=== PATIENT | male | born 1960 | race Caucasian/White ===

== ENCOUNTER → 2019-02-16 | Outpatient (CLI) | payer BC ==
--- NOTE | 2019-02-16 15:34 | ECHOS ---
STRESS ECHOCARDIOGRAM DATE OF SERVICE: 02/16/2019 AGE: 59 SEX: M HT: 72" WT: 194 PROTOCOL: Hipolito protocol STAGE: 4 DURATION OF EXERCISE: 10 minutes HEART RATE REST: 67 BLOOD PRESSURE REST: 114/71 MAXIMUM HEART RATE ACHIEVED: 148 MAXIMUM BLOOD PRESSURE: 161/69 85% MPHR: 139 100% MPHR: 163 METS: 11.7 INDICATIONS: Chest pain. CLINICAL INFORMATION: Chest pain. STRESS DATA: Heart rate 67. Blood pressure is 114/71 mmHg. Baseline EKG showed sinus mechanism. The patient exercised on treadmill according to Hipolito protocol for a total of 10 minutes and achieved 11.7 METs. Max heart rate was 148, which is about 90% of maximum predicted heart rate. Maximum blood pressure was 161/69 mm Hg. Clinically, the patient did not have any symptoms of chest pain or chest discomfort and the EKG did not show any significant ST or T-wave abnormalities concerning for ischemia. ECHOCARDIOGRAM IMAGES: On echocardiogram images from parasternal long axis view, parasternal short axis view, apical 4 chamber and apical 2 chamber were obtained as the baseline images, at peak heart rate as well as on recovery. The echocardiogram images showed good augmentation in the left ventricular systolic function without any evidence of wall motion abnormalities concerning for ischemia. CONCLUSION: 1. Excellent exercise tolerance. 2. Normal EKG in response to exercise. 3. Normal echocardiogram in response to exercise. MMODL / IJN: [id number] /
== END | disposition home or self-care (01) ==
LOC: RADNMMAIN 09:49
PROVIDERS: ATTEND Family Medicine
DX: R07.9 Chest pain, unspecified (principal)
CPT/HCPCS: 93351

== ENCOUNTER 2019-02-18 11:39 | Day surgery (SDC) | payer BC ==
[2019-02-16 11:54] VITALS: BMI 26.3
[~2019-02-18 11:39] MED LIST: LACTATED RINGERS 1,000 ML IV SCH; LIDOCAINE 1% 20 ML VIAL (10MG/ML) FOR IV START INTRADERMA PRN
--- NOTE | 2019-02-18 11:57 | P.GSHP ---
History of Present Illness H&P Date: 02/18/19 CHIEF COMPLAINT: Colon screen HISTORY OF PRESENT ILLNESS: The patient is a 59-year-old male who presents for colon screen. Lower endoscopy was offered for further evaluation and management. PAST MEDICAL HISTORY: Please see list. PAST SURGICAL HISTORY: Please see list. MEDICATIONS: Please see list. ALLERGIES: Please see list. SOCIAL HISTORY: No illicit drug use FAMILY HISTORY: No reports of Crohn disease or ulcerative colitis. REVIEW OF ORGAN SYSTEMS: CONSTITUTIONAL: No reports of fevers or chills. PHYSICAL EXAM: VITAL SIGNS: Stable GENERAL: Well-developed pleasant in no acute distress. HEENT: No scleral icterus. Extraocular movements grossly intact. Moist buccal mucosa. NECK: Supple without lymphadenopathy. CHEST: Unlabored respirations. Equal bilateral excursions. CARDIOVASCULAR: Regular rate and rhythm. Distal 2+ pulses. ABDOMEN: Soft, nontender, nondistended. MUSCULOSKELETAL: No clubbing, cyanosis, or edema. ASSESSMENT: 1. Colon screen. PLAN: 1. Recommend proceeding with a lower endoscopy Past Medical History Past Medical History: Hyperlipidemia, Hypertension, Osteoarthritis (OA) Additional Past Medical History / Comment(s): hx migraines, recent stress stest for occ."heart flutter", bulging disks in neck History of Any Multi-Drug Resistant Organisms: None Reported Past Surgical History: Appendectomy, Joint Replacement, Orthopedic Surgery, Tonsillectomy Additional Past Surgical History / Comment(s): yana knee replacements, yana knee revisions, yana hip replacement, rt shoudler rotator cuff, left shoulder arthroscopy, yana knee arthroscopy, nose surgery x 2 after injury, left knee surgery 2 weeks after knee replacement (had infection after-not sure what organism) 2011 at [facility] Past Anesthesia/Blood Transfusion Reactions: No Reported Reaction Smoking Status: Never smoker - Past Family History Mother Family Medical History: Cancer Medications and Allergies Home Medications Medication Instructions Recorded Confirmed Type Atorvastatin [Lipitor] 10 mg PO DAILY 02/16/19 02/16/19 History Ibuprofen [Motrin] 800 mg PO TID PRN 02/16/19 02/16/19 History Lisinopril [Prinivil] 10 mg PO DAILY 02/16/19 02/16/19 History Multivitamins, Thera [Multivitamin 1 tab PO DAILY 02/16/19 02/16/19 History (formulary)] Mv-Min/Vit C/Glut/Lysine/Hc124 1 each PO DAILY 02/16/19 02/16/19 History [Airborne Tablet Chewable] traZODone HCL 50 mg PO HS 02/16/19 02/16/19 History Allergies Allergy/AdvReac Type Severity Reaction Status Date / Time No Known Allergies Allergy Verified 02/16/19 11:39
[2019-02-18] MEDS ORDERED: LACTATED RINGERS 1,000 ML IV ONE (12:14)
[2019-02-18] MEDS ORDERED: LIDOCAINE 1% INJ 10MG/ML (20 ML MDV) ONE (13:44)
[2019-02-18] MEDS ORDERED: PROPOFOL 10 MG/ML 20 ML VIAL IV ONE (13:44)
[2019-02-18 13:48] VITALS: RESP 18; TEMP 97.8
[2019-02-18 14:34] VITALS: BP 107/65; PULSE 74
--- NOTE | 2019-02-18 14:40 | P.PCN ---
Date of Procedure: 02/18/19 Description of Procedure: PREOPERATIVE DIAGNOSIS: Personal history of colorectal polyps Colonoscopy screening. POSTOPERATIVE DIAGNOSIS: Personal history of colorectal polyps Colonoscopy screening. Diverticulosis, scattered. OPERATION: Colonoscopy to the ileocecal valve and appendiceal orifice. Colonoscopy with cold forceps biopsy, ileal cecal valve SURGEON: Kristine Harris MD. ANESTHESIA: MAC. INDICATIONS: The patient is a 59-year-old male who presents for colonoscopy screening. Last colonoscopy within 5 years with high-risk polyps identified. Benefits and risks were described and informed consent was obtained. DESCRIPTION OF PROCEDURE: The patient had undergone Suprep. He had been brought into the operating room and laid in the left lateral decubitus position. After adequate intravenous sedation, the rectum was examined with 2% lidocaine jelly. The prostatic fossa was unremarkable.No external hemorrhoids were encountered. The rectal tone was within normal limits. No lesions were palpated in the rectal vault. An Olympus colonoscope was advanced until the ileocecal valve and appendiceal orifice were clearly viewed. The prep was excellent with clear visualization of the mucosal folds. The scope was removed with visualization of each mucosal fold. Scattered diverticulosis was encountered. No colonic polyps were found. At the ileocecal valve, an acute ulceration was identified and biopsied with cold forceps. Retroflexion of the scope demonstrated grade 1 internal hemorrhoids without active bleeding or inflammation. The colon was desufflated. The patient had tolerated the procedure well. Withdrawal time was over 6 minutes. FINDINGS: Aronchick preparation quality scale 1 (1-5) Internal hemorrhoids, grade 1 No external prolapsed hemorrhoids. No arteriovenous malformations. No adenomatous polyps. Sigmoid diverticulosis. At the ileocecal valve, an acute ulceration was identified and biopsied with cold forceps. RECOMMENDATIONS: Lower endoscopy in 5 years, 2023 Plan - Discharge Summary New Discharge Prescriptions: No Action Multivitamins, Thera [Multivitamin (formulary)] 1 tab PO DAILY traZODone HCL 50 mg PO HS Atorvastatin [Lipitor] 10 mg PO DAILY Lisinopril [Prinivil] 10 mg PO DAILY Ibuprofen [Motrin] 800 mg PO TID PRN PRN Reason: pain Mv-Min/Vit C/Glut/Lysine/Hc124 [Airborne Tablet Chewable] 1 each PO DAILY Discharge Medication List Atorvastatin [Lipitor] 10 mg PO DAILY 02/16/19 [History] Ibuprofen [Motrin] 800 mg PO TID PRN 02/16/19 [History] Lisinopril [Prinivil] 10 mg PO DAILY 02/16/19 [History] Multivitamins, Thera [Multivitamin (formulary)] 1 tab PO DAILY 02/16/19 [History] Mv-Min/Vit C/Glut/Lysine/Hc124 [Airborne Tablet Chewable] 1 each PO DAILY 02/16/19 [History] traZODone HCL 50 mg PO HS 02/16/19 [History] Follow up Appointment(s)/Referral(s): Kristine Harris MD [STAFF PHYSICIAN] - As Needed Patient Instructions/Handouts: *Surgery [facility] - (Anesthesia) Endoscopy Discharge Instructions, Diverticulosis (DC), Diverticulosis Diet (GEN), Colonoscopy (DC), Diverticulosis (ED) Activity/Diet/Wound Care/Special Instructions: Repeat colonoscopy in 5 years, 2023 Discharge Disposition: HOME SELF-CARE
== END 2019-02-18 15:06 | disposition home or self-care (01) ==
LOC: ORWHC2ENDO 11:39
PROVIDERS: ATTEND Surgery Plastic and Reconstructive Surgery
DX: Z12.11 Encounter for screening for malignant neoplasm of colon (principal); K52.9 Noninfective gastroenteritis and colitis, unspecified; K63.3 Ulcer of intestine; K57.30 Diverticulosis of large intestine without perforation or abscess without bleeding; K64.0 First degree hemorrhoids; Z86.010 Personal history of colon polyps; I10 Essential (primary) hypertension; E78.5 Hyperlipidemia, unspecified; M19.90 Unspecified osteoarthritis, unspecified site; G43.909 Migraine, unspecified, not intractable, without status migrainosus; Z79.899 Other long term (current) drug therapy; Z90.49 Acquired absence of other specified parts of digestive tract; Z96.653 Presence of artificial knee joint, bilateral; Z96.643 Presence of artificial hip joint, bilateral; Z80.9 Family history of malignant neoplasm, unspecified
CPT/HCPCS: 88305; 45380; J2001; J2704

== ENCOUNTER → 2019-03-16 | Outpatient (CLI) | payer BC ==
[2019-03-16 11:51] VITALS: BP 125/75; PULSE 76; RESP 18
--- NOTE | 2019-03-17 05:38 | P.PAINCN ---
History of Present Illness - Reason for Consult Consult date: 03/16/19 - History of Present Illness This is an initial consultation visit for this 59 years old male with a chronic history of severe neck pain, patient reported that the pain started 4 years ago , he denies any initiating event, but he reported that the intensity of the pain came more prominent and more intense after he fell on his left shoulder in January 2018, he reported that the pain in the neck and radiated to the right upper extremity associated with numbness and tingling sensation in the fingers of his right hand, and he also reported that the pain is occasionally added to his left upper extremity, patient denies any motor or sensory deficit, he denies any fever or night sweats and that is no change in the bowel movements or urination, he tried TENS unit without any benefit Past Medical History Past Medical History: Hyperlipidemia, Hypertension, Osteoarthritis (OA) Additional Past Medical History / Comment(s): hx migraines, "heart flutter",bul ging disks in neck History of Any Multi-Drug Resistant Organisms: None Reported Past Surgical History: Appendectomy, Joint Replacement, Orthopedic Surgery, Tonsillectomy Additional Past Surgical History / Comment(s): yana knee replacements,yana knee revisions,had left knee surgery 2 weeks after knee replacemt for infection 2012 @ [facility],yana hip replacements, rt shoulder rotator cuff,left shoulder arthroscopy,yana knee arthroscopy, nasl surgery x2 after an injury Past Anesthesia/Blood Transfusion Reactions: No Reported Reaction Past Psychological History: No Psychological Hx Reported Smoking Status: Never smoker Past Alcohol Use History: Occasional Past Drug Use History: None Reported - Past Family History Mother Family Medical History: Cancer Medications and Allergies Home Medications Medication Instructions Recorded Confirmed Type Atorvastatin [Lipitor] 10 mg PO DAILY 02/16/19 03/16/19 History Ibuprofen [Motrin] 800 mg PO TID PRN 02/16/19 03/16/19 History Lisinopril [Prinivil] 10 mg PO DAILY 02/16/19 03/16/19 History Multivitamins, Thera [Multivitamin 1 tab PO DAILY 02/16/19 03/16/19 History (formulary)] Mv-Min/Vit C/Glut/Lysine/Hc124 1 each PO DAILY 02/16/19 03/16/19 History [Airborne Tablet Chewable] traZODone HCL 50 mg PO HS 02/16/19 03/16/19 History Sulfamethox-Tmp 800-160Mg [Bactrim 1 tab PO Q12HR 03/16/19 03/16/19 History DS 800-160 mg] Allergies Allergy/AdvReac Type Severity Reaction Status Date / Time sulfamethoxazole Allergy Rash/Hives Verified 03/16/19 12:19 [From Bactrim] trimethoprim [From Bactrim] Allergy Rash/Hives Verified 03/16/19 12:19 Physical Exam Vitals: Vital Signs Pulse Resp BP Pulse Ox 03/16/19 11:25 76 18 125/75 96 REVIEW OF ORGAN SYSTEMS: CONSTITUTIONAL: No fevers or chills. No recent weight loss. EYES: denies troubles with vision. HEENT: No difficulties with hearing. No nosebleeds. No difficulty swallowing. RESPIRATORY: Denies any troubles with breathing or dyspnea on exertion. CARDIOVASCULAR: Denies any chest pain, palpitations, or recent heart attacks. GASTROINTESTINAL: Denies fatty food intolerance. Has change in bowel habits and gas bloat. GENITOURINARY: Denies any blood in urine. Has increased urinary frequency. NEUROLOGICAL: + numbness and tingling along the distal upper extremities. No seizure disorders or headaches. MUSCULOSKELETAL: Has neck pain. SKIN:no skin cancer. No rash. PSYCHIATRIC: Denies current depression or suicidal thoughts. ENDOCRINE: Denies current thyroid disorders. Denies any blood sugar glucose intolerance. HEME/LYMPHATIC: Denies any lumps and bumps around the neck. History of deep venous thrombosis. ALLERGY/IMMUNOLOGY: No immunoglobulin therapy. No immune deficiencies. BREAST: Denies current breast lumps, pain or nipple discharge. Physical Examinations : Constitutiona : Cooperative , not in acute distress . HEENT : nech : supple , no Lymphadenopathy , normal thyroid size . : eyes no ptosis , no icterus, no photophobia . : ENT normal of hearing , normal oropharynx , no Thrush . Respiratory : Chest clear to auscultations Bilaterally , no wheezing , no Rhonchi . Cardiovascula : regular rate and rhythem , S1 , S2 , no S3 , no S4. Gastrointestina : abdomen soft no tenderness , bowel sounds , no organomegally . Genitourinary : Defferred . neurologic : Cranial nerve II to XII intact , no focal neurological deffecit . psychatric : alert , oriented X 3 , appropriate affect , intact judgment and insight . Lymphatic : no Lymphadenopathy . musculoskeltal : Cervical Spine motor stregnth in the deltoid and biceps, normal right side , normal Left side motor stregnth biceps and the wrist extensors normal right side ,normal left side . motor stregnth in the triceps muscle . normal Right side , normal Left side deep tendon reflexes= normal at the biceps , normal at Brachioradialis , normal at triceps. cervical facet loading test: Positive Bilaterally Spurling test= positive bilaterally. Neck distraction test= positive bilaterally. Jonnie sign= positive bilaterally. Limited ability to extend or rotate, and abduct left shoulder Lumber spine moter stegnth lower extremities ,thigh and legs 5/5 Right side , 5/5 Left side Results Comments: MRI of the cervical spine C4 5 disc desiccation and disc bulging is C6 7 disc desiccation Assessment and Plan Plan: Assessment and plan=1-cervical radiculopathy 2-cervical degenerative disc disease. 3-cervical spondylosis. 4-left shoulder arthropathy. Patient will be good candidate to have cervical epidural steroid injections under fluoroscopy guidance the C7-T1 Procedure risk and benefits and alternatives were discussed with the patient ,he agreed to the procedure Time with Patient: Greater than 30 PQRS Measure Charge Sheet Measure #130: Documentation of Current Meds in Medical Chart: Patient's medications documented in chart Measure #226: Tobacco Use: Screen & Cessation Intervention: Pt not a tobacco user Measure #111: Pneumonia Vaccination: Pneumococcal vaccine NOT administered or previously given Measure #47: Advance Care Plan: Advance care planning discussed & documented, pt chose/unable to give Measure #412: Opioid Treatment Agreement: No documentation of signed opioid treatment agreement Measure #408: Opioid Therapy Follow-up Evaluation: Patient had NO f/u eval minimum every 3 months during opioid therapy Measure #317: Preventitive Care & Scrn High Bld Press & F/U: Normal blood pressure, f/u not required Measure #128: Body Mass Index (BMI) Screening & Follow-up: BMI documented ABOVE normal parameters - f/u documented Measure #131: Pain Assessment & Follow-up: Pain positive & plan documented, Follow-up scheduled Measure #431: Unhealthy Alcohol Use Preventative Care & Scrn: Patient not identified as an unhealthy alcohol user PQRS Narrative: Smoking Status Never smoker Blood Pressure 125/75 Pain Intensity [Neck] 5 Scale Used Numeric (1 - 10) Hx Alcohol Use (MH) Yes Home Medications: Ambulatory Orders Atorvastatin [Lipitor] 10 mg PO DAILY 02/16/19 Ibuprofen [Motrin] 800 mg PO TID PRN 02/16/19 Lisinopril [Prinivil] 10 mg PO DAILY 02/16/19 Multivitamins, Thera [Multivitamin (formulary)] 1 tab PO DAILY 02/16/19 Mv-Min/Vit C/Glut/Lysine/Hc124 [Airborne Tablet Chewable] 1 each PO DAILY 02/16/19 traZODone HCL 50 mg PO HS 02/16/19 Sulfamethox-Tmp 800-160Mg [Bactrim DS 800-160 mg] 1 tab PO Q12HR 03/16/19
== END ==
LOC: PNWHC3 11:21
PROVIDERS: ATTEND Specialist
DX: M50.10 Cervical disc disorder with radiculopathy, unspecified cervical region (principal); M47.22 Other spondylosis with radiculopathy, cervical region; M46.92 Unspecified inflammatory spondylopathy, cervical region; E78.5 Hyperlipidemia, unspecified; I10 Essential (primary) hypertension; Z79.899 Other long term (current) drug therapy; Z79.1 Long term (current) use of non-steroidal anti-inflammatories (NSAID); Z79.2 Long term (current) use of antibiotics; Z88.2 Allergy status to sulfonamides
CPT/HCPCS: 99211

== ENCOUNTER → 2019-04-12 | Day surgery (SDC) | payer BC ==
[2019-03-23 13:04] VITALS: BMI 26.0
[~2019-04-12] MED LIST changes: +DEXAMETHASONE SOD PHOSPHATE 10 MG/ML 1 ML VIAL ONE; +IOPAMIDOL M200 10 ML VIAL ONE; +IV FLUID CONTINUATION 1,000 ML IV ONE; +LIDOCAINE 1% 20 ML VIAL (10MG/ML) FOR IV START INTRADERMA ONE; -LIDOCAINE 1% 20 ML VIAL (10MG/ML) FOR IV START INTRADERMA PRN; +MIDAZOLAM 2 MG/2 ML VIAL ONE; +fentaNYL (PF) 50 MCG/ML 2 ML AMP ONE
[2019-04-12 06:52] VITALS: TEMP 98.1
--- NOTE | 2019-04-12 07:58 | P.PCN ---
Date of Procedure: 04/12/19 Procedure(s) Performed: . PROCEDURE 1. Cervical epidural steroid injection under fluoroscopic guidance, C7-T1 (fluoroscopy images available in the radiology department ) 2. Cervical epidurogram. PREOPERATIVE DIAGNOSIS: 1- Cervical Degenerative Disc Diseases 2- Cervical radiculopathy., 3-cervical spondylosis with cervical Facet arthropathy without myelopathy POSTOPERATIVE DIAGNOSIS: : 1- Cervical Degenerative Disc Diseases , 2- Cervical radiculopathy. 3-,cervical spondylosis with cervical Facet arthropathy without myelopathy ANESTHESIA: Local anesthesia with lidocaine 1 % , and moderate sedation, with Versed 2 mg and Fentanyl 50 mcg. EBL 0 PROCEDURE INDICATION: The patient with neck pain and radiculitis unresponsive to conservative treatment consents for procedure. PROCEDURE DESCRIPTION / TECHNIQUE: The patient was seen and identified in the preoperative area. Risks, benefits, complications, including but not limited to infections ,bleeding , allergic reactions to the medications ,and not complete pain releife, and alternatives were discussed with the patient, the patient agreed to proceed with the procedure and signed the consent. Patient was taken to the OR and time out was completed. The patient was placed in the prone position on the procedure table. A pillow was placed under the patients chest to increase the cervical interlaminar space. The cervical area was prepped and draped in the usual sterile fashion. Vital signs were closely monitored during the procedure. Conscious sedation was used during the procedure to decrease patients anxiety. Using anterior-posterior fluoroscopy, the C7-T1 interlaminar space was identified and the skin over this site was marked and then infiltrated with 1% lidocaine subcutaneously. Subsequently, a 20-gauge 3-1/2-inch Tuohy epidural needle was inserted and advanced toward the epidural space by means of the ``richey ging-drop technique and guided by AP and lateral fluoroscopy. The correct needle position in the epidural space was verified with the injection of 2 mL of the water soluble contrast dye Isovue-200 and observing an excellent epidurogram with the epidural spread of the dye, after negative aspiration for blood and CSF and in the absence of paresthesias. Again after negative aspiration, mixture containing 20 mg Dexamethasone and 2 ml of preservative- free normal saline injected and a washout of epidurogram was seen. Needle was withdrawn intact, skin was cleansed, and bandages were applied. Complications= none. Disposition= patient was placed in supine position and transferred to the recovery room area in stable condition and there was no evidence of upper or lower extremity motor or sensory deficit after the procedure patient was discharged from recovery room after discharge criteria met and home discharge instructions was given by the staff and patient will follow with the pain clinic in 2-4 weeks
[2019-04-12 08:04] VITALS: RESP 16
[2019-04-12 08:16] VITALS: BP 113/75; PULSE 80
--- NOTE | 2019-04-12 08:20 | FL ---
EXAMINATION TYPE: FL guided pain mgmt statistic DATE OF EXAM: 04/12/2019 HISTORY: Fluoroscopy time 6 seconds of fluoroscopy provided. IMPRESSION: 1. Fluoroscopy time.
== END ==
LOC: ORPAIN 06:27
PROVIDERS: ATTEND Specialist
DX: M50.30 Other cervical disc degeneration, unspecified cervical region (principal); M47.812 Spondylosis without myelopathy or radiculopathy, cervical region; Z88.2 Allergy status to sulfonamides
CPT/HCPCS: 62321; J2250; J1100; J3010; Q9966; 99152

== ENCOUNTER 2019-05-03 07:26 | Day surgery (SDC) | payer BC ==
[2019-04-23 11:07] VITALS: BMI 27.1
[~2019-05-03 07:26] MED LIST changes: -DEXAMETHASONE SOD PHOSPHATE 10 MG/ML 1 ML VIAL ONE; -IOPAMIDOL M200 10 ML VIAL ONE; -IV FLUID CONTINUATION 1,000 ML IV ONE; +LIDOCAINE 1% (10MG/ML) FOR IV START INTRADERMA PRN; -LIDOCAINE 1% 20 ML VIAL (10MG/ML) FOR IV START INTRADERMA ONE; -MIDAZOLAM 2 MG/2 ML VIAL ONE; -fentaNYL (PF) 50 MCG/ML 2 ML AMP ONE
[2019-05-03 07:34] VITALS: TEMP 97
[2019-05-03] MEDS ORDERED: DEXAMETHASONE SOD PHOSPHATE 10 MG/ML 1 ML VIAL ONE (08:00)
[2019-05-03] MEDS ORDERED: IOPAMIDOL M200 10 ML VIAL ONE (08:00)
[2019-05-03] MEDS ORDERED: fentaNYL (PF) 50 MCG/ML 2 ML AMP ONE (08:00)
[2019-05-03] MEDS ORDERED: MIDAZOLAM 2 MG/2 ML VIAL ONE (08:00)
[2019-05-03] MEDS ORDERED: IV FLUID CONTINUATION 1,000 ML IV ONE (08:20)
--- NOTE | 2019-05-03 08:30 | FL ---
EXAMINATION TYPE: FL guided pain mgmt statistic DATE OF EXAM: 05/03/2019 HISTORY: Fluoroscopy time 8 seconds of fluoroscopy provided. IMPRESSION: 1. Fluoroscopy time.
[2019-05-03 08:41] VITALS: BP 135/88; PULSE 63; RESP 16
--- NOTE | 2019-05-03 09:37 | P.PCN ---
Date of Procedure: 05/03/19 Procedure(s) Performed: Diagnosis: Cervical radiculopathy Cervical degenerative disc disease POSTOPERATIVE DIAGNOSIS: Diagnoses: Cervical radiculopathy Cervical degenerative disc disease PROCEDURE Cervical Epidural steroid injection under fluoroscopic guidance at the C7-T1 interspace using left paramedian approach Cervical epidurogram ANESTHESIA: Local with 1% lidocaine 3 ml and IV sedation with Versed and fentanyl, sedation time 11 minutes Fluoroscopy was used for the procedure and images were saved in the radiology portion of the chart. EBL: Minimal PROCEDURE INDICATION: The patient presents with cervical radicular symptoms unresponsive to conservative treatment. This is the second cervical epidural steroid injection. PROCEDURE DESCRIPTION / TECHNIQUE: The patient was seen and identified in the preoperative area. Risks, benefits, complications including but not limited to infections ,bleeding ,allergic reaction to the medications ,nerve damage and incomplete pain relief, and alternatives were discussed with the patient. The patient agreed to proceed with the procedure and signed the consent. IV was started, and vital signs were stable. Patient was taken to the OR and time out was completed. The patient was placed in the prone position on procedure table and a pillow was placed under the chest area. The cervical area was prepped and draped in the usual sterile fashion. Conscious sedation was used during the procedure to decrease patients anxiety. Vital signs was monitored during the entire procedure. Using anterior-posterior fluoroscopy, the C7-T1 interlaminar space was identified and the skin over this site was marked and then infiltrated with 1% lidocaine subcutaneously. Subsequently, an 18-gauge Tuohy epidural needle was inserted and advanced toward the epidural space using the loss of resistance technique and guided by AP and 50 oblique fluoroscopy. The correct needle position in the epidural space was verified. After negative aspiration for blood and CSF and in the absence of paresthesias, Isovue 200 2 mL's was injected under live fluoroscopy with good epidural spread. After negative aspiration, a 5 ml mixture containing 10 mg of dexamethasone, 3 mL of preservative free normal saline and 1 mL of 1% lidocaine was injected. Needle was withdrawn intact, skin was cleansed, and bandages were applied. COMPLICATIONS: None DISPOSITION / PLANS: The patient was placed in a supine position and transferred to the recovery area in a stable condition for observation. There was no evidence of lower extremity motor or sensory deficit after the procedure. Patient was discharged from the recovery room after meeting discharge criteria. Home discharge instructions were given to the patient by the staff. The patient will be scheduled a follow-up in the clinic in 2-4 weeks.
== END 2019-05-03 08:51 | disposition home or self-care (01) ==
LOC: ORPAIN 07:26
PROVIDERS: ATTEND Anesthesiology
DX: M50.10 Cervical disc disorder with radiculopathy, unspecified cervical region (principal); Z88.2 Allergy status to sulfonamides
CPT/HCPCS: 62321; J2250; J1100; J3010; Q9966; 99152

== ENCOUNTER → 2020-02-09 | Outpatient (CLI) | payer BC ==
--- NOTE | 2020-02-09 13:57 | XR ---
EXAMINATION TYPE: XR elbow complete LT DATE OF EXAM: 02/09/2020 COMPARISON: NONE HISTORY: Pain FINDINGS: Three views of the elbow demonstrate no pathologic joint effusion. The osseous structures are intact . There is no acute fracture or dislocation. Large olecranon spur. Small spur along the lateral epi condyle. IMPRESSION: 1. No acute fracture or dislocation. If symptoms persist follow-up study in 7 to 10 days could be ob tained. 2. Large olecranon spur. There may be a hairline fracture through the spur. Correlate with point tend ernchristo.
== END | disposition home or self-care (01) ==
LOC: RADXRMAIN 13:34
PROVIDERS: ATTEND Nurse Practitioner
DX: M25.721 Osteophyte, right elbow (principal)

== ENCOUNTER → 2021-01-16 | Outpatient (CLI) | payer BC | END | disposition home or self-care (01) | LOC: LABWHC1 13:42 | PROVIDERS: ATTEND Family Medicine | DX: Z20.822 Contact with and (suspected) exposure to COVID-19 (principal); J06.9 Acute upper respiratory infection, unspecified | CPT/HCPCS: 87502; U0003; C9803 ==

== ENCOUNTER → 2021-04-11 | Outpatient (CLI) | payer BC ==
--- NOTE | 2021-04-11 15:29 | XR ---
Bilateral shoulders HISTORY: M25.511 M25.512 3 views of the right shoulder, 4 views of the left shoulder submitted Right shoulder shows prior rotator cuff tendon repair change. Osteoarthritic change is present with s purring at the glenohumeral joint. Suture anchors are present within the humeral head. Distal clavicl e has been resected. Acromion is downturned. Right lung apex as visualized is normal. There is no fra cture or dislocation. Left shoulder shows some hypertrophic change at the acromioclavicular joint. Distal acromial spur may be present, acromion is slightly downsloping. No fracture or dislocation. Left lung apex as visualiz ed is normal. Some remodeling present at the bony glenoid. impression: Suspect osteoarthritic changes, postop changes are noted on the right.
== END | disposition home or self-care (01) ==
LOC: RADXRMAIN 14:32
PROVIDERS: ATTEND Nurse Practitioner Family
DX: M25.511 Pain in right shoulder (principal); M25.512 Pain in left shoulder

== ENCOUNTER → 2021-04-30 | Outpatient (CLI) | payer BC ==
--- NOTE | 2021-04-30 11:31 | MR ---
EXAMINATION TYPE: MR shoulder LT wo con DATE OF EXAM: 04/30/2021 8:22 AM COMPARISON: NONE HISTORY: Pain in left shoulder TECHNIQUE: Multiplanar multispin echo imaging of the left shoulder was performed. FINDINGS: Rotator cuff : There is partial intrasubstance tear extending to the bursal surface involving the inf raspinatus tendon as well as the supraspinatus tendon. No evidence for full-thickness tear at this ti me. Bursa: No bursal effusion or thickening is seen. Musculature: There is edema within the infraspinatus musculature with partial tear noted. Acromioclavicular joint : There are moderate degenerative changes of the acromioclavicular joint. Th ere is no anterior or lateral acromial downsloping. Osseous structures : There are no fractures or regions of abnormal bone marrow signal intensity. Long biceps tendon : The biceps tendon is normally situated within the bicipital groove. No complete or partial biceps tendon tear is present. Glenohumeral Joint fluid : Small amount of fluid within the subacromial subdeltoid bursa. Cartilage and Bone : No focal hyaline cartilage defects are noted. No Hill-Sachs, reverse Hill-Sachs, or bony Bankart lesions are seen. Labrum : There are no SLAP or soft tissue Bankart lesions. No paralabral cysts are seen. OTHER FINDINGS : none IMPRESSION: 1. Partial intrasubstance tear infraspinatus tendon along the bursal surface. No evidence for full-th ickness tear. Small amount of fluid within the subacromial subdeltoid bursa.
== END | disposition home or self-care (01) ==
LOC: RADMRIMAIN 07:31
PROVIDERS: ATTEND Orthopaedic Surgery
DX: M75.112 Incomplete rotator cuff tear or rupture of left shoulder, not specified as traumatic (principal)

== ENCOUNTER → 2021-05-09 | Outpatient (CLI) | payer BC ==
[2021-05-10 01:16] LABS: Chol/HDL Ratio 2.64 Ratio; LDL Cholesterol,Calculated 94.9 mg/dL (0.0-131.0); VLDL Calculation 11.32 mg/dL (5.00-40.00)
[2021-05-10 01:24] LABS: ALT 25 U/L (10-49); AST 23 U/L (14-35); African American GFR (CKD) 127.6 (60.0-200.0); Albumin 4.4 g/dL (3.8-4.9); Albumin/Globulin Ratio 1.63 (1.60-3.17); Alkaline Phosphatase 84 U/L (41-126); BUN/Creat Ratio 19.17 Ratio (12.00-20.00); Blood Urea Nitrogen 11.5 mg/dL (9.0-27.0); Calcium 9.5 mg/dL (8.7-10.3); Carbon Dioxide 23.3 mmol/L (20.0-27.5); Chloride 100 mmol/L (96-109); Globulin 2.7 g/dL (1.6-3.3); Glucose 81 mg/dL (70-110); Non-African American GFR(CKD) 110.1 (60.0-200.0); Potassium 4.2 mmol/L (3.5-5.5); Sodium 135 mmol/L (135-145); Total Protein 7.1 g/dL (6.2-8.2)
[2021-05-10 01:27] LABS: Basophils # (A) 0.05 X 10*3/uL (0.00-0.10); Basophils % (A) 0.8 %; Eosinophils # (A) 0.08 X 10*3/uL (0.04-0.35); Eosinophils % (A) 1.2 %; HCT 47.9 % (39.6-50.0); HGB 14.8 g/dL (13.0-17.0); Immature Grans, Automated 0.5 %; Lymphocytes # (A) 1.01 X 10*3/uL (0.90-5.00); Lymphocytes % (A) 15.3 %; MCH 28.3 pg (27.0-32.0); MCHC 30.9 g/dL (32.0-37.0); MCV 91.6 fL (80.0-97.0); Mean Platelet Volume 12.8 fL (9.5-12.2); Monocytes # (A) 0.59 X 10*3/uL (0.20-1.00); NRBC Per 100 WBC 0 /100 WBCS (0.0-0.0); Neutrophils # (A) 4.83 X 10*3/uL (1.80-7.70); Neutrophils % (A) 73.2 %; Platelet Count 221 X 10*3/uL (140-440); RBC 5.23 X 10*6/uL (4.40-5.60); RDW 14.2 % (11.5-14.5); WBC 6.59 X 10*3/uL (4.50-10.00)
== END | disposition home or self-care (01) ==
LOC: LABWHC1 11:20
PROVIDERS: ATTEND Family Medicine
DX: Z00.00 Encounter for general adult medical examination without abnormal findings (principal); I10 Essential (primary) hypertension; Z12.5 Encounter for screening for malignant neoplasm of prostate
CPT/HCPCS: 36415; 80053; 80061; 84153; 84439; 84443; 85025; 93005

== ENCOUNTER → 2021-05-25 | Day surgery (SDC) | payer BC ==
[2021-05-22 13:06] VITALS: BMI 26.3
--- NOTE | 2021-05-24 10:39 | HP ---
HISTORY AND PHYSICAL CHIEF COMPLAINT: Left shoulder pain. HISTORY OF PRESENT ILLNESS: The patient is a 61-year-old [id number] male on permanent disability who presents with progressive left shoulder pain for the past several years, worsening recently. He is having pain with overhead use and at night. He has tried therapy in addition to injections and medications, with only partial temporary relief. He has a history of two previous left shoulder surgeries. PAST MEDICAL HISTORY: Significant for arthritis, hypercholesterolemia and hypertension. PAST SURGICAL HISTORY: Significant for bilateral total hip arthroplasty, bilateral total knee arthroplasty with subsequent revisions along with bilateral shoulder surgery. CURRENT MEDICATIONS: Atorvastatin and lisinopril. ALLERGIES: HE DENIES DRUG ALLERGIES. FAMILY HISTORY: Significant for cancer. SOCIAL HISTORY: Significant for social alcohol use. REVIEW OF SYSTEMS: Sixteen-point review of systems otherwise reviewed and is noncontributory. PHYSICAL EXAMINATION: On examination, the patient is approximately 6 feet tall, 195 pounds of mesomorphic habitus. HEENT exam is nonfocal. Neck is supple. On the left shoulder, he is tender about the anterior subacromial space. He has moderate crepitus. Active range of motion: Forward elevation 90 degrees, external rotation with arm at side 50 degrees, internal rotation to L5. Passively I am able to forward-elevate him 130 degrees. Motor strength 4+/5 for external rotation with the arm at side, 4+/5 for abduction. Impingement test, Neer test and Speed test are positive. His distal neurovascular exam appears intact in the right upper extremity. MRI report left shoulder 04/30/2021 shows evidence of an increased signal involving the supraspinatus and infraspinatus along the bursal surface. IMPRESSION: Left shoulder impingement with partial-thickness rotator cuff tear, symptomatic. RECOMMENDATIONS: I talked to the patient at length regarding his condition along with treatment options. At this point he is quite symptomatic and opts to proceed with surgery. We will plan to proceed with arthroscopic evaluation with possible revision subacromial decompression in addition to rotator cuff debridement versus repair. We will also evaluate the status of the long head of the biceps and consider tenotomy if needed. We will likely perform that as an outpatient procedure. Risks and benefits were discussed at length in layman's terms. MMODL / IJN: [id number] /
[~2021-05-25] MED LIST changes: +DEXAMETHASONE SOD PHOSPHATE 4 MG/ML 1 ML VIAL IV ONE; +EPINEPHrine (PF) 1 ML in SODIUM CHLORIDE 0.9% IRRIGATIO 3,000 ML IRRIGATION ONE; +GLYCOPYRROLATE 0.2 MG/ML 2 ML VIAL ONE; +HYDROmorphone 0.5 MG/0.5 ML SYRINGE IVP PRN; +LACTATED RINGERS 1,000 ML IV ONE; +LIDOCAINE 1% INJ 10MG/ML (20 ML MDV) ONE; +MIDAZOLAM 2 MG/2 ML VIAL IV PRN; +MIDAZOLAM 2 MG/2 ML VIAL IVP ONE; +MIDAZOLAM 2 MG/2 ML VIAL ONE; +NEOSTIGMINE 1 MG/ML 10 ML VIAL ONE; +ONDANSETRON 4 MG/2 ML VIAL IVP ONE; +PHENYLEPHRINE-0.9% NACL SYG 1,000 MCG/10 ML SYRINGE ONE; +PROPOFOL 10 MG/ML 20 ML VIAL IV ONE; +ROCURONIUM 10 MG/ML (5 ML VIAL) IV ONE; +ROPIVACAINE 5 MG/ML 30 ML VIAL ONE; +SUCCINYLCHOLINE CHLORIDE 100 MG/5 ML SYR IV ONE; +ePHEDrine 50 MG/ML 1 ML VIAL ONE; +fentaNYL (PF) 50 MCG/ML 2 ML AMP ONE
--- NOTE | 2021-05-25 10:36 | P.OP ---
Date of Procedure: 05/25/21 Preoperative Diagnosis: Left shoulder impingement/bicipital tendinosis/partial thickness rotator cuff tear Postoperative Diagnosis: Same in addition to adhesive capsulitis Procedure(s) Performed: Left shoulder arthroscopic subacromial decompression/biceps tenotomy/rotator cuff debridement/manipulation under anesthesia Anesthesia: baltazar SHEN Surgeon: Gregory Cuba Vending Route Servicer #1: Shashank Torres Estimated Blood Loss (ml): 10 Pathology: none sent Condition: stable Disposition: PACU Indications for Procedure: The patient's a 61-year-old male presents with progressive left shoulder pain despite conservative measures. A discussion of the risks and benefits of operative intervention versus continued conservative measures was made with the patient. He had a previous arthroscopic procedure. He opted to proceed with surgery. Operative risks to include infection, neurovascular injury, development of blood clots, possible incomplete resolution of symptoms and need for subsequent procedures was discussed. Informed consent was obtained. Operative Findings: as below Description of Procedure: The patient was brought to the operating room, and after induction of general anesthesia was placed in a beachchair position. A preoperative interscalene block was placed for postoperative analgesia. I examined the left shoulder. There was moderate block to forward elevation and external rotation. Gentle manipulation was performed obtaining full external rotation with arm at side. Moderate adhesions were encountered. I then obtained full forward elevation. Again moderate adhesions were encountered. The left upper extremity was prepped and draped in normal fashion. The bony outlines the acromion, distal clavicle, and coracoid process were outlined with a skin marker. The glenohumeral joint was inflated with 50 mL of saline utilizing a spinal needle from posterior approach. A posterior portal was made through a 5 mm skin incision 1 cm medial and inferior to the posterior lateral border time. A blunt trocar was used to easily into the joint. Diagnostic arthroscopy was performed. An anterior portal was made just lateral to the coracoid process entering the joint above the subscapularis tendon. The subscapularis tendon appeared to be intact. Anterior labrum was intact. The inferior recess was inspected. The posterior labrum was intact. There was a high-grade partial-thickness tear of the long head of the biceps involving interarticular portion. It was elected to proceed with release at this point. This was released from the superior labrum with electrocautery and was allowed to retract to the bicipital groove. On inspection the rotator cuff, it was intact on the articular surface. The patient did have 2 areas of grade 4 chondral defect involving humeral head just medial to the rotator cuff insertion anteriorly measuring 4 x 5 mm. The cartilage on the glenoid appeared to be intact. The arthroscope was placed into the subacromial space. A lateral portal was made 2 centimeters inferior to the anterior lateral border of the acromion. The rotator cuff was inspected on the bursal surface. A partial thickness tear involving 10% of the tendon thickness was noted involving the anterior supraspinatus. This was debrided back to stable base with a motorized shaver. The remaining rotator cuff appeared to be stable and intact. The soft tissue on the undersurface of the acromion was debrided with a motorized shaver and electrocautery clearly defining the anterior medial and lateral borders as well as the distal clavicle. A revision anterior inferior acromioplasty was performed with a motorized melecio starting anterolateral, then extending this posteriorly, then extending this medially. I converted to a flat acromion and this was verified in the posterior and lateral viewing portals. The arthroscope was then removed. The portals were closed with simple 3-0 nylon sutures. A sterile dressing was applied in addition to a sling. The patient was then awoken from general anesthesia and transferred to recovery room in good condition. Blood loss was estimated at 10 mL. No complications were incurred. Sponge and needle counts were correct in the case. Shashank HELLER assisted and the major components of the case to include arm positioning, decompression, and rotator cuff debridement.
[2021-05-25 10:41] VITALS: TEMP 97.3
[2021-05-25 11:44] VITALS: RESP 18
[2021-05-25 12:44] VITALS: BP 147/50; PULSE 74
--- NOTE | 2021-05-30 13:22 | P.ANPRN ---
Procedure Note - Anesthesia - Nerve Block Performed Left Interscalene Single Time Out Performed: Yes Date of Procedure: 05/25/21 Procedure Start Time: 08:50 Procedure Stop Time: 08:59 Location of Patient: PreOp Indication: Acute Post-Operative Pain, Requested by Surgeon Sedation Type: Sedate with meaningful contact maintained Preparation: Sterile Prep Position: Supine Needle Types: Pajunk Needle Gauge: 21 Ultrasound used to visualize needle placement: Yes Ultrasound used to observe medication spread: Yes Blood Aspirated: No Pain Paresthesia on Injection Noted: No Resistance on Injection: Normal Image Stored and Saved: Yes Events: Uneventful and Well Tolerated (ropi .5% 25cc plus dexamethasone 4mg)
== END | disposition home or self-care (01) ==
LOC: OR 07:39
PROVIDERS: ATTEND Orthopaedic Surgery
DX: M75.102 Unspecified rotator cuff tear or rupture of left shoulder, not specified as traumatic (principal); M75.42 Impingement syndrome of left shoulder; M75.22 Bicipital tendinitis, left shoulder; I10 Essential (primary) hypertension; E78.00 Pure hypercholesterolemia, unspecified; Z96.643 Presence of artificial hip joint, bilateral; G89.18 Other acute postprocedural pain
CPT/HCPCS: 29826; 29827; 29828; 64415; 76942; J2250; J1100; J2710; J0690; J2405; J0171; J2001; J3010; J2795; J2370; J0330; J2704

== ENCOUNTER → 2022-06-25 | Outpatient (CLI) | payer BC | END | disposition home or self-care (01) | LOC: LABWHC1 16:02 | PROVIDERS: ATTEND Surgery Plastic and Reconstructive Surgery | DX: I11.9 Hypertensive heart disease without heart failure (principal) | CPT/HCPCS: 36415; 93005 ==

== ENCOUNTER 2022-07-12 05:41 | Day surgery (SDC) | payer BC ==
[2022-07-10 08:39] VITALS: BMI 27.8
[~2022-07-12 05:41] MED LIST changes: +ACETAMINOPHEN TAB 500 MG TAB PO PRN; -EPINEPHrine (PF) 1 ML in SODIUM CHLORIDE 0.9% IRRIGATIO 3,000 ML IRRIGATION ONE; -GLYCOPYRROLATE 0.2 MG/ML 2 ML VIAL ONE; +HEPARIN SODIUM,PORCINE/PF 5,000 UNIT/0.5 ML SYRINGE SQ PRN; -LACTATED RINGERS 1,000 ML IV ONE; -LIDOCAINE 1% INJ 10MG/ML (20 ML MDV) ONE; -MIDAZOLAM 2 MG/2 ML VIAL IVP ONE; -MIDAZOLAM 2 MG/2 ML VIAL ONE; -NEOSTIGMINE 1 MG/ML 10 ML VIAL ONE; +ONDANSETRON 4 MG/2 ML VIAL IVP PRN; -PHENYLEPHRINE-0.9% NACL SYG 1,000 MCG/10 ML SYRINGE ONE; -PROPOFOL 10 MG/ML 20 ML VIAL IV ONE; -ROCURONIUM 10 MG/ML (5 ML VIAL) IV ONE; -ROPIVACAINE 5 MG/ML 30 ML VIAL ONE; -SUCCINYLCHOLINE CHLORIDE 100 MG/5 ML SYR IV ONE; -ePHEDrine 50 MG/ML 1 ML VIAL ONE; -fentaNYL (PF) 50 MCG/ML 2 ML AMP ONE
[2022-07-12 06:42] LABS: Glucose,Whole Blood 96 mg/dL (70-110)
[2022-07-12 06:49] VITALS: RESP 16
[2022-07-12 06:52] LABS: Basophils % (A) 1 %; Eosinophils # (A) 0.1 k/uL (0-0.7); Eosinophils % (A) 3 %; HCT 45.9 % (39.0-53.0); HGB 15.5 gm/dL (13.0-17.5); Lymphocytes # (A) 0.9 k/uL (1.0-4.8); Lymphocytes % (A) 22 %; MCH 30.6 pg (25.0-35.0); MCHC 33.8 g/dL (31.0-37.0); MCV 90.4 fL (80.0-100.0); Mean Platelet Volume 9.9; Monocytes # (A) 0.3 k/uL (0-1.0); Monocytes % (A) 7 %; Neutrophils # (A) 2.7 k/uL (1.3-7.7); Neutrophils % (A) 64 %; Platelet Count 148 k/uL (150-450); RBC 5.08 m/uL (4.30-5.90); RDW 13.2 % (11.5-15.5); WBC 4.2 k/uL (3.8-10.6)
--- NOTE | 2022-07-12 07:06 | P.GSHP ---
History of Present Illness H&P Date: 07/12/22 CHIEF COMPLAINT: Ventral hernia HISTORY OF PRESENT ILLNESS: The patient is a 62-year-old male presents with a history of swelling and pain along the abdomen from a hernia of the abdomen. Symptoms have been present for over 6 months. Now he presents for surgical intervention. PAST MEDICAL HISTORY: Please see list. PAST SURGICAL HISTORY: Please see list. MEDICATIONS: Please see list. ALLERGIES: Please see list. SOCIAL HISTORY: No illicit drug use FAMILY HISTORY: No reports of Crohn disease or ulcerative colitis. REVIEW OF ORGAN SYSTEMS: CONSTITUTIONAL: No reports of fevers or chills. CARDIO: No current chest pain GI: Denies any blood in stools or constipation. PHYSICAL EXAM: VITAL SIGNS: Stable GENERAL: Well-developed pleasant male in no acute distress. HEENT: No scleral icterus. Extraocular movements grossly intact. Moist buccal mucosa. NECK: Supple without lymphadenopathy. CHEST: Unlabored respirations. Equal bilateral excursions. CARDIOVASCULAR: Regular rate and rhythm. Distal 2+ pulses. ABDOMEN: Soft, nondistended. Palpable defect of the abdomen. No peritoneal signs. MUSCULOSKELETAL: No clubbing, cyanosis, or edema. ASSESSMENT: 1. Ventral hernia PLAN: 1. Recommend proceeding with robotic ventral hernia repair with mesh. 2. Benefits and risks of surgical intervention was discussed including possibility of open technique. 3. DVT prophylaxis. 4. Antibiotic prophylaxis. 5. Non narcotic pain management including abdominal wall block described 6. Blood sugar glucose described. 7. Weight loss management described. Past Medical History Past Medical History: Hyperlipidemia, Hypertension, Osteoarthritis (OA) Additional Past Medical History / Comment(s): abdominal hernia,has scabs-nothing open currently to rt hand 2nd digit-had antibiotic injection and tx w/ oral an tibiotics finished 1 week ago, hx migraines, "heart flutter"-had normal stress test 2017,bulging disks in neck History of Any Multi-Drug Resistant Organisms: None Reported Past Surgical History: Appendectomy, Joint Replacement, Orthopedic Surgery, To nsillectomy Additional Past Surgical History / Comment(s): yana knee replacements,yana knee revisions,had left knee surgery 2 weeks after knee replacemt for infection 2011 @ [facility],yana hip replacements, rt shoulder rotator cuff,left shoulder arthroscopy,yana knee arthroscopy, nasl surgery x2 after an injury, PAIN CLINIC PROCEDURES, BOIL ON BACK LANCED,rt reversed total shoulder 2021 Past Anesthesia/Blood Transfusion Reactions: No Reported Reaction Additional Past Anesthesia/Blood Transfusion Reaction / Comment(s): no hx blood transfusion Smoking Status: Never smoker - Past Family History Mother Family Medical History: Cancer Additional Family Medical History / Comment(s): lung CA Medications and Allergies Home Medications Medication Instructions Recorded Confirmed Type Atorvastatin [Lipitor] 10 mg PO QAM 02/16/19 07/12/22 History Ibuprofen [Motrin] 800 mg PO TID PRN 02/16/19 07/12/22 History Multivitamins, Thera [Multivitamin 1 tab PO DAILY 02/16/19 07/12/22 History (formulary)] lisinopriL [Prinivil] 10 mg PO QAM 02/16/19 07/12/22 History Acetaminophen [Tylenol Extra 1,000 mg PO Q4-6H PRN 05/22/21 07/12/22 History Strength] Allergies Allergy/AdvReac Type Severity Reaction Status Date / Time sulfamethoxazole Allergy Rash/Hives Verified 07/12/22 06:19 [From Bactrim] trimethoprim [From Bactrim] Allergy Rash/Hives Verified 07/12/22 06:19 STERI STRIPS AdvReac BURNING Uncoded 07/12/22 06:19 Surgical - Exam Vital Signs Temp Pulse Resp BP Pulse Ox 97.2 F L 65 16 109/69 97 07/12/22 06:15 07/12/22 06:15 07/12/22 06:15 07/12/22 06:15 07/12/22 06:15 Results - Labs 07/12/22 06:30 Abnormal Lab Results - Last 24 Hours (Table) 07/12/22 Range/Units 06:30 Plt Count 148 L (150-450) k/uL Lymphocytes # 0.9 L (1.0-4.8) k/uL
[2022-07-12] MEDS ORDERED: PROPOFOL 10 MG/ML 20 ML VIAL IV ONE (07:47)
[2022-07-12] MEDS ORDERED: HYDROmorphone (PF) 1 MG/ML ONE (07:47)
[2022-07-12] MEDS ORDERED: LIDOCAINE 2% INJ 20 MG/ML (2 ML VIAL) ONE (07:47)
[2022-07-12] MEDS ORDERED: NEOSTIGMINE 1 MG/ML 10 ML VIAL ONE (07:47)
[2022-07-12] MEDS ORDERED: GLYCOPYRROLATE 0.2 MG/ML 2 ML VIAL ONE (07:47)
[2022-07-12] MEDS ORDERED: fentaNYL (PF) 50 MCG/ML 2 ML AMP ONE (07:47)
[2022-07-12] MEDS ORDERED: ROCURONIUM 10 MG/ML (5 ML VIAL) IV ONE (07:47)
[2022-07-12] MEDS ORDERED: PHENYLEPHRINE-0.9% NACL SYG 1,000 MCG/10 ML SYRINGE ONE (07:47)
[2022-07-12] MEDS ORDERED: SUCCINYLCHOLINE CHLORIDE 200 MG/10 ML VIAL IV ONE (07:47)
[2022-07-12] MEDS ORDERED: ROPIVACAINE 5 MG/ML 30 ML VIAL ONE (07:47)
[2022-07-12] MEDS ORDERED: MIDAZOLAM 2 MG/2 ML VIAL ONE (07:47)
[2022-07-12] MEDS ORDERED: DEXAMETHASONE SOD PHOSPHATE 4 MG/ML 1 ML VIAL ONE (07:47)
[2022-07-12] MEDS ORDERED: BUPIVACAINE (PF) 0.25% 30 ML VIAL SQ ONE (08:17)
[2022-07-12] MEDS ORDERED: LACTATED RINGERS 1,000 ML IV ONE (09:00)
[2022-07-12 09:31] VITALS: TEMP 97.8
[2022-07-12] MEDS ORDERED: HYDROmorphone 0.5 MG/0.5 ML SYRINGE IVP ONE (09:55)
[2022-07-12] MEDS ORDERED: GABAPENTIN 300 MG CAP PO STA (10:15)
[2022-07-12] MEDS ORDERED: TAMSULOSIN 0.4 MG CAP.ER.24H PO STA (10:15)
[2022-07-12] MEDS ORDERED: oxyCODONE-APAP 7.5-325MG 1 EACH TAB PO PRN (10:15)
[2022-07-12] MEDS ORDERED: KETOROLAC 15 MG/ML 1 ML VIAL IVP PRN (10:15)
--- NOTE | 2022-07-12 10:20 | P.OP ---
Date of Procedure: 07/12/22 Description of Procedure: SURGEON: KRISTINE HARRIS MD PREOPERATIVE DIAGNOSES: 1. Initial epigastric ventral hernia with incarceration 2. Hypertensive heart disease 3. Gastroesophageal reflux disease 4. Hyperlipidemia POSTOPERATIVE DIAGNOSES: 1. Initial epigastric ventral hernia with incarceration, 4-cm 2. Hypertensive heart disease 3. Gastroesophageal reflux disease 4. Hyperlipidemia OPERATION: 1. Robotic-assisted da Albaro Xi laparoscopic repair of initial incarcerated epigastric ventral hernia with mesh, ventralight ST mesh 10 x 15 cm 2. Robotic-assisted da Albaro Xi laparoscopic repair of initial incarcerated umbilical hernia with mesh, ventralight ST mesh 10 x 15 cm Anesthesia: GETA, regional, local Estimated Blood Loss (ml): 5 Pathology: 1. Incarcerated ventral hernia defect COMPLICATIONS: None. Operative Findings: 1. Multiple defects of the abdominal wall between umbilicus and xiphoid 2. Umbilical hernia defect 2 x 2 cm 3. Epigastric ventral hernia 2, 2 cm 4. Combined length of defects 4 cm, incarcerated preperitoneal fat 5. Fascia repaired using #1 V-lock suture 6. Fascial imbrication 2 for primary closure and repair of hernia defect INDICATIONS: The patient is a 62-year-old male who presents with a personal history of multiple abdominal wall hernias. Surgical intervention with laparoscopic versus robotic and open techniques were reviewed. Placement of mesh was also reviewed. Benefits and risks were thoroughly described. Informed c onsent was obtained. DESCRIPTION OF PROCEDURE: The patient was brought into the operating room and laid in supine position. After general induction, the abdomen had been prepped and draped in standard sterile fashion. Ioban draping was also placed. Prior to incision, a timeout protocol was confirmed with surgical team regarding the patient's name including procedures to be performed. The robot was primed prior to the procedure. A field block using local anesthetic was placed along hernia site including the proposed port sites. Initial incision was made with an #11 blade along the left upper quadrant. A 0 degree 5 mm laparoscopic trocar entry was performed and insufflated. Three 8 mm ports were placed along the left lateral abdominal wall under direct localization after exchanging the 5-mm for an 8 mm port. Placements of the ports were 15 cm from the target anatomy and 10 cm apart. An accessory 12 mm port was placed at the right upper quadrant for exchange of mesh including sutures. The [employer] robot was previously primed, prepped and draped then docked from the right side of the patient onto the left side of the patient. I then sat at the robot Da Albaro Xi console where working arms of the robot including Bovie cautery connected to robotic scissors, needle class a truck driver, and graspers placed by the logging assistant. Incarcerated omental contents were found along the upper midline defect including umbilicus. The defects were reduced with preperitoneal fat including the falciform ligament at the upper midline defect. Two distinct fascial defects were found: Upper midline defect 2 x 2 cm and umbilical hernia defect 2 x 2 cm. The incarcerated contents were reduced as the peritoneal fat was cleaned from the abdominal wall. Next, hemostasis was checked with cautery. The hernia defects were oversewn using #1 nonabsorbable V-lock suture for each defect separately with fascial imbrication x 2. Next, ventralight ST mesh 10 x 15 cm was placed with the rough side towards the abdominal wall as to cover the epigastric including umbilical defect. 2-0 VLOC 9 inch sutures were used to fixate the mesh. A final endoscopic imaging was obtained. All instruments and pneumoperitoneum were evacuated from the abdominal cavity. The da Albaro Xi robot was undocked from the patient. I re-scrubbed into the case for closure of incisions. The fascia of the 12-mm port was probed and less than 8-mm in size. The incisions were reapproximated using 4-0 Monocryl in an interrupted subcuticular fashion. Liquid glue was applied to the skin after cleansing the skin with normal saline and dilute hydrogen peroxide. An abdominal binder was placed. An umbilical dressing was placed prior. At the end of the procedure, needle, sponge, and instrument count had been verified correct by salesperson surgical appliances. The patient was taken to the postanesthesia care unit in stable condition. Plan - Discharge Summary Discharge Rx Participant: No New Discharge Prescriptions: New Acetaminophen Tab [Tylenol Tab] 1,000 mg PO Q6HR PRN #30 tablet PRN Reason: Pain Cyclobenzaprine [Flexeril] 10 mg PO TID #30 tab Continue Multivitamins, Thera [Multivitamin (formulary)] 1 tab PO DAILY Atorvastatin [Lipitor] 10 mg PO QAM lisinopriL [Prinivil] 10 mg PO QAM Ibuprofen [Motrin] 800 mg PO TID PRN PRN Reason: pain Acetaminophen [Tylenol Extra Strength] 1,000 mg PO Q4-6H PRN PRN Reason: Pain Discharge Medication List Atorvastatin [Lipitor] 10 mg PO QAM 02/16/19 [History] Ibuprofen [Motrin] 800 mg PO TID PRN 02/16/19 [History] Multivitamins, Thera [Multivitamin (formulary)] 1 tab PO DAILY 02/16/19 [History] lisinopriL [Prinivil] 10 mg PO QAM 02/16/19 [History] Acetaminophen [Tylenol Extra Strength] 1,000 mg PO Q4-6H PRN 05/22/21 [History] Acetaminophen Tab [Tylenol Tab] 1,000 mg PO Q6HR PRN #30 tablet 07/12/22 [Rx] Cyclobenzaprine [Flexeril] 10 mg PO TID #30 tab 07/12/22 [Rx] Follow up Appointment(s)/Referral(s): Kristine Harris MD [STAFF PHYSICIAN] - 07/16/22 (TELEHEALTH - WILL CALL YO U BETWEEN 8 am to 6 pm) Patient Instructions/Handouts: *Surgery [facility] - Managing Your Pain After Surgery Without Opioids, Abdominal Binder (DC), Laparoscopic Herniorrhaphy (IP) Activity/Diet/Wound Care/Special Instructions: No lifting for 4 pounds in 4 weeks, August 12 Using antibacterial soap. May shower. No bathtub soaks for 2 weeks, July 26 Wear abdominal binder daily for comfort except for showering. Use ice along incisions for today to prevent swelling. Discharge Disposition: HOME SELF-CARE
--- NOTE | 2022-07-12 10:25 | P.ANPRN ---
Procedure Note - Anesthesia - Nerve Block Performed Bilateral Transversus Abdominis Single Time Out Performed: Yes Date of Procedure: 07/12/22 Procedure Start Time: : Procedure Stop Time: :12 Location of Patient: PreOp Indication: Acute Post-Operative Pain, Requested by Surgeon Position: Supine Needle Types: Pajunk Needle Gauge: 21 Ultrasound used to visualize needle placement: Yes Ultrasound used to observe medication spread: Yes Blood Aspirated: No Pain Paresthesia on Injection Noted: No Resistance on Injection: Normal Image Stored and Saved: Yes Events: Uneventful and Well Tolerated (Ropivacaine 0.5% 20 mL plus dexamethasone 4 mg given bilaterally)
[2022-07-12 11:18] VITALS: BP 136/75; PULSE 66
[2022-07-12 11:55] LABS: ALT 32 U/L (4-49); AST 29 U/L (17-59); African American GFR (CKD) >90 (>60 ml/min/1.73 sqM); Alkaline Phosphatase 78 U/L (38-126); Anion Gap 5 mmol/L; Blood Urea Nitrogen 11 mg/dL (9-20); Calcium 8.9 mg/dL (8.4-10.2); Carbon Dioxide 28 mmol/L (22-30); Chloride 105 mmol/L (98-107); Glucose 109 mg/dL (74-99); Non-African American GFR(CKD) >90 (>60 ml/min/1.73 sqM); Potassium 4.5 mmol/L (3.5-5.1); Sodium 138 mmol/L (137-145); Total Bilirubin 0.5 mg/dL (0.2-1.3); Total Protein 6.3 g/dL (6.3-8.2)
== END 2022-07-12 12:05 | disposition home or self-care (01) ==
LOC: OR 05:41
PROVIDERS: ATTEND Surgery Plastic and Reconstructive Surgery
DX: K42.0 Umbilical hernia with obstruction, without gangrene (principal); K43.6 Other and unspecified ventral hernia with obstruction, without gangrene; G89.18 Other acute postprocedural pain; I11.9 Hypertensive heart disease without heart failure; K21.9 Gastro-esophageal reflux disease without esophagitis; E78.5 Hyperlipidemia, unspecified; M19.90 Unspecified osteoarthritis, unspecified site; Z90.49 Acquired absence of other specified parts of digestive tract; Z90.89 Acquired absence of other organs; Z98.890 Other specified postprocedural states; Z96.653 Presence of artificial knee joint, bilateral; Z80.1 Family history of malignant neoplasm of trachea, bronchus and lung; Z79.899 Other long term (current) drug therapy; Z88.2 Allergy status to sulfonamides; Z88.1 Allergy status to other antibiotic agents
CPT/HCPCS: 64488; 80053; 85025; 49592; C1781; J2250; J0330; J1100; J2710; J0690; J2405; J3010; J1170 ×2; J2795; J2370; J2704; J1644; J2001; 88302

== ENCOUNTER → 2023-02-18 | Outpatient (CLI) | payer BC ==
--- NOTE | 2023-02-21 15:33 | MR ---
EXAMINATION TYPE: MR shoulder LT wo con DATE OF EXAM: 02/18/2023 COMPARISON: 04/22/2021 HISTORY: Left shoulder pain and limited range of motion. History of surgery. TECHNIQUE: Multiplanar, multisequence imaging of the left shoulder is performed without contrast. FINDINGS: There is moderate osteoarthritic change of the AC joint but no significant shoulder impingement. Ther e is intrasubstance abnormal signal intensity within the musculotendinous junction of the infraspinat us consistent with intrasubstance tear. The subscapularis tendons and supraspinatus tendons are intac t. There is no retraction of the musculotendinous junctions. Subacromial and subdeltoid fluid seen on the prior study has resolved. There are no joint effusions. The biceps tendon is normal in size, signal intensity and position within the bicipital groove. The b iceps anchor is attached. Abnormal signal intensity within the superior cartilaginous labrum has reso lved but the tip appears mildly truncated raising the question of prior labral injury with repair. There are no bone contusions or fractures. IMPRESSION: 1. Moderate degenerative change of the AC joint without shoulder impingement. 2. Small intrasubstance tear of the infraspinatus at the musculotendinous junction. 3. No tear of the supraspinatus tendon or subscapularis tendon. 4. Resolution of the previous subacromial and subdeltoid bursitis. 5. Resolution of abnormal signal intensity within the superior cartilaginous labrum. Findings raise t he question of previous labral tear with repair correlate with surgical history.
== END | disposition home or self-care (01) ==
LOC: RADMRIMAIN 18:14
PROVIDERS: ATTEND Orthopaedic Surgery
DX: M19.012 Primary osteoarthritis, left shoulder (principal); M75.112 Incomplete rotator cuff tear or rupture of left shoulder, not specified as traumatic

== ENCOUNTER → 2024-01-23 | Outpatient (CLI) | payer BC ==
--- NOTE | 2024-01-23 12:00 | XR ---
EXAMINATION TYPE: XR shoulder complete LT DATE OF EXAM: 01/23/2024 11:16 AM COMPARISON: None CLINICAL INDICATION: Male, 63 years old with history of M24.812 LEFT SHOULDER JOINT; [facility] TECHNIQUE: XR shoulder complete LT; examined in AP, internally rotated and scapular Y projections. FINDINGS: No evidence of acute osseous pathology, joint dislocation, or soft tissue swelling. The remaining po rtions of the visualized chest are unremarkable. Degeneration changes of the acromion, distal clavic le with osteophyte formation. There is osteophyte formation of the glenoid and humeral head. There is joint space narrowing of glenohumeral joint. IMPRESSION: 1. No acute osseous pathology. 2. Mild shoulder osteoarthrosis. [facility], , 01/23/2024 11:58 AM
== END | disposition home or self-care (01) ==
LOC: RADXRMAIN 11:01
PROVIDERS: ATTEND Family Medicine
DX: M19.012 Primary osteoarthritis, left shoulder (principal); M24.812 Other specific joint derangements of left shoulder, not elsewhere classified